=== PATIENT | female | born 1940 | race Caucasian/White ===

== ENCOUNTER → 2020-12-22 | Outpatient (CLI) | payer MEDICARE ==
--- NOTE | 2020-12-22 13:15 | RAD ---
Exam Date: 12/22/2020 1:07 PM XR CHEST 2V Indication: Reason: COUGH. WEAKNESS. / Spl. Instructions: / History: FINDINGS/ IMPRESSION: There are patchy opacities in the lung bases bilaterally which may represent atelectasis and/or infil trates. The cardiac silhouette is not enlarged with mild prominence of the pulmonary vasculature. There is no appreciable pleural effusion or pneumothorax. Degenerative changes are seen in the spine. Electronically signed by: Fausto Kulkarni MD (12/22/2020 1:13 PM) [facility]
== END ==
LOC: DXRAD 12:53
PROVIDERS: ATTEND Nurse Practitioner Family
DX: R05 Cough (principal); M47.814 Spondylosis without myelopathy or radiculopathy, thoracic region
CPT/HCPCS: 71046

== ENCOUNTER 2021-05-02 10:54 | Observation (INO) | payer MEDICARE ==
[~2021-05-02] VITALS: Ht 172.7 cm; Wt 106.7 kg
[2021-05-02] MEDS ORDERED: ALLO300T PO (12:09)
[2021-05-02] MEDS ORDERED: IBUP400T18 PO (12:09)
[2021-05-02] MEDS ORDERED: CYAN500T17 PO (12:09)
[2021-05-02] MEDS ORDERED: VITA200T6 PO (12:09)
[2021-05-02] MEDS ORDERED: ACET325C6 PO (12:09)
[2021-05-02] MEDS ORDERED: OMEG1CAP50 PO (12:09)
[2021-05-02] MEDS ORDERED: CHOL400T36 PO (12:09)
[2021-05-02 12:10] VITALS: BP 135/65
[2021-05-02 13:37] LABS: BASO % 0 % (0-3); EOS % 0 % (0-3); HEMOGLOBIN 11.2 g/dL (12.0-15.5); LYMPH % 30 % (24-48); MEAN CORPUSCULAR HEMOGLOBIN 30 pg (25-35); MEAN CORPUSCULAR HGB CONC 33 g/dL (31-37); MEAN CORPUSCULAR VOLUME 91 fL (79-100); MONO % 15 % (0-9); NEUT # 3.5 x10^3uL (1.8-7.7); NEUT % 54 % (31-73); PLATELET COUNT 144 x10^3/uL (140-400); RED BLOOD COUNT 3.74 x10^6/uL (3.50-5.40); RED CELL DISTRIBUTION WIDTH 14.2 % (11.5-14.5); WHITE BLOOD COUNT 6.6 x10^3/uL (4.0-11.0)
[2021-05-02 13:51] LABS: ALBUMIN 2.6 g/dL (3.4-5.0); ALBUMIN/GLOBULIN RATIO 0.7 (1.0-1.7); CALCIUM 8.9 mg/dL (8.5-10.1); CREATININE 1.2 mg/dL (0.6-1.0); GFR 43.1; POTASSIUM 3.1 mmol/L (3.5-5.1); TOTAL BILIRUBIN 0.5 mg/dL (0.2-1.0); TOTAL PROTEIN 6.2 g/dL (6.4-8.2)
[2021-05-02 14:17] LABS: % BANDS 5 % (0-9); % LYMPHS 38 % (24-48); % MONOS 10 % (0-10); % MYELOS 1 % (0-0); % SEGS 46 % (35-66); PLT ESTIMATE ADEQUATE (ADEQUATE)
[2021-05-02 14:18] VITALS: BP 122/77
[2021-05-02] MEDS ORDERED: ELECTROLYTE (NON-ICU) PROTOCOL. MC PRN (14:45)
[2021-05-02] MEDS ORDERED: ENOXAPARIN 40 MG/0.4 ML SYRINGE. SQ SCH (14:45)
--- NOTE | 2021-05-02 18:23 | EKG ---
[address] [address] Test Date: 2021-05-02 Test Time: 18:09:13 Pat Name: NACHO ALEXANDRE Department: Room: 111 A Gender: F Dialysis Registered Nurse: : 1940 Requested By: LORRAINE TYLER Order Number: [id number] Reading MD: Measurements Intervals [place] Rate: 81 P: 39 NE: 150 QRS: 15 QRSD: 110 T: 24 QT: 380 QTc: 447 Interpretive Statements SINUS RHYTHM QRS(T) CONTOUR ABNORMALITY CONSIDER INFERIOR MYOCARDIAL DAMAGE POSSIBLY ABNORMAL ECG RI6.01 No previous ECG available for comparison
[2021-05-02] MEDS ORDERED: ACETAMINOPHEN 325 MG TABLET PO PRN (18:30)
[2021-05-02] MEDS ORDERED: IBUPROFEN 400 MG TABLET. PO PRN (18:30)
[2021-05-02] MEDS: LACTOBACILLUS RHAMNOSUS GG 1 CAPSULE. PO SCH (20:11)
[2021-05-02 20:32] VITALS: BP 135/81
[2021-05-03 00:54] VITALS: BP 122/73
[2021-05-03 01:38] LABS: BACTERIA,URINE 0 /HPF (0-FEW); BILIRUBIN,URINE NEG (NEG); CLARITY,URINE CLEAR; COLOR,URINE YELLOW; GLUCOSE,URINE NEG (NEG); NITRITE,URINE NEG (NEG); RBC,URINE 0 /HPF (0-2); SQUAMOUS EPITHELIAL CELL,UR FEW /LPF; UROBILINOGEN,URINE 0.2 mg/dL (0.2 mg/dL)
[2021-05-03 05:15] VITALS: BP 116/82
--- NOTE | 2021-05-03 08:32 | RAD ---
EXAM: Chest, 2 views. HISTORY: Shortness of breath. COMPARISON: 12/22/2020 FINDINGS: 2 views of the chest are obtained. There is stable diffuse increased interstitial opacity. There is no consolidation, pleural effusion or pneumothorax. There is stable enlargement of the left hilum. The heart is normal in size. IMPRESSION: 1. Stable diffuse increased interstitial opacity suggesting interstitial infiltrate or chronic inters titial changes. 2. Stable left hilar prominence due to enlarged central pulmonary vessels or lymphadenopathy. Electronically signed by: Jaky Torres MD (05/03/2021 8:30 AM) [id number]
[2021-05-03] MEDS: LACTOBACILLUS RHAMNOSUS GG 1 CAPSULE. PO SCH (08:44)
[2021-05-03] MEDS ORDERED: ALLOPURINOL 300 MG TABLET. PO SCH (09:00)
[2021-05-03 09:28] LABS: CALCIUM 9.5 mg/dL (8.5-10.1); CREATININE 1.1 mg/dL (0.6-1.0); GFR 47.7; POTASSIUM 3.2 mmol/L (3.5-5.1)
[2021-05-03] MEDS ORDERED: LEVO500T8 PO (09:54)
[2021-05-03] MEDS ORDERED: cefTRIAXone IM 1 GM VIAL IM ONE (11:15)
--- NOTE | 2021-05-03 20:56 | DS ---
DATE OF DISCHARGE: 05/03/2021 HOSPITAL COURSE: The patient is an 81-year-old admitted with possible pyelonephritis, been having nausea, vomiting, been following with increased weakness despite being treated as an outpatient for her what appeared to be a urinary tract infection and got up into her kidneys. The patient was running a temperature of 103 the night before being admitted to the hospital. The patient was placed on IV antibiotic therapy. X-rays did demonstrate the possibility of an interstitial infiltrate, possibility along with a course of urinary tract infection. The patient otherwise has made excellent progress during the rest of her hospitalization. The patient had no trouble breathing, no chest pain, shortness of breath per se. The patient did have slight elevation of her AST of 38, alkaline phosphatase 121. The patient's renal function decreased slightly to 47 on GFR. The patient's hemoglobin 11.2 and 34. In any case, the patient was admitted, placed on IV antibiotic therapy of Levaquin and Rocephin, made excellent progress. Final culture reports came back on her urine and showed E. coli. She was placed on Levaquin. I will make further evaluation on her as an outpatient where she was placed on oral antibiotics and she was able to keep things down and was discharged home. IMPRESSION: Therefore, pyelonephritis, possible interstitial pneumonia, hypokalemia, chronic kidney disease stage IIIA, severe protein malnutrition. The patient will be discharged home. Regular diet, decreased activity. Continue on the Levaquin. Follow up accordingly in 7 to 10 days or sooner as needed. Phone numbers were presented to the patient. ADITHYA DR: Ramone TID: [id number]
== END 2021-05-03 11:45 | disposition home or self-care (01) ==
LOC: INTOOBSV 10:54 → 1 SOUTH 10:54
PROVIDERS: ADMIT Family Medicine; ATTEND Family Medicine
DX: N12 Tubulo-interstitial nephritis, not specified as acute or chronic (principal); E87.6 Hypokalemia; N18.31 Chronic kidney disease, stage 3a; E43 Unspecified severe protein-calorie malnutrition; N39.0 Urinary tract infection, site not specified; Z79.899 Other long term (current) drug therapy
CPT/HCPCS: 36415; 71046; 80048; 80053; 81001; 83605; 85007; 85025; 85379; 87040; 93005; 96365; 96366; 96368; 96372; G0378; G0379; J0696; J1650; J1956

== ENCOUNTER 2021-05-14 17:42 | Emergency (ER) | payer MEDICARE ==
[~2021-05-14] VITALS: Ht 172.7 cm; Wt 106.7 kg
[~2021-05-14 17:42] MED LIST: ACET325C6 PO; ALLO300T PO; CHOL400T36 PO; CYAN500T17 PO; IBUP400T18 PO; LEVO500T8 PO; OMEG1CAP50 PO; VITA200T6 PO
--- NOTE | 2021-05-14 18:57 | RAD ---
Exam: Chest one view INDICATION: Chest pain, cardiac workup TECHNIQUE: Frontal view of the chest Comparisons: 05/03/2021 FINDINGS: Cardiomediastinal silhouette and pulmonary vessels are within normal limits. Lung and pleural spaces are clear. IMPRESSION: No acute cardiopulmonary process Electronically signed by: Caesar Willis MD (05/14/2021 6:54 PM) [facility]
--- NOTE | 2021-05-14 19:17 | PHYS DOC ---
Past History Additional Past Medical Histor: GOUT Past Surgical History: , Hysterectomy, Knee Replacement, Other Additional Past Surgical Histo: L RETINAL DETACHMENT, BLADDER LIFT Adult General Chief Complaint Chief Complaint: HYPOTENSION HPI HPI Patient is an 81-year-old female with a past medical history significant for recent hospitalization for pyelonephritis, discharge 6 days ago on Levaquin and finished her course who presents with a chief complaint of intermittent lightheadedness since then. States that since she is got home from the hospital she has times during the day where she stands up fast and feels lightheaded. Denies any headache, actual feelings of faintness or like she is going to pass out, headache, fevers, chest pain, shortness of breath, abdominal pain, nausea, vomiting, dysuria, hematuria, diarrhea or blood in the stool. Denies any confusion, slurred speech, numbness/weakness/tingling, trouble sitting, standing or walking. Review of Systems Review of Systems Review of systems otherwise unremarkable except noted in HPI Allergies Allergies Allergies Coded Allergies Type Severity Reaction Last Updated Verified No Known Drug Allergies 05/02/21 No Physical Exam Physical Exam Constitutional: Well developed, well nourished, no acute distress, non-toxic appearance. [] HENT: Normocephalic, atraumatic, Eyes: PERRLA, EOMI, conjunctiva normal, no discharge. [] Neck: Normal range of motion, no tenderness, supple, no stridor. [] Cardiovascular:Heart rate regular rhythm, no murmur [] Lungs & Thorax: Bilateral breath sounds clear to auscultation [] Abdomen: soft, no tenderness, no masses, no pulsatile masses. [] Skin: Warm, dry, no erythema, no rash. [] Back: no CVA tenderness. [] Extremities: No tenderness, ROM intact, no edema. [] Neurologic: Alert and oriented X 3, normal motor function, normal sensory function, able to sit, stand and walk without issue, cranial nerves intact, no focal deficits noted. [] Psychologic: Affect normal, judgement normal, mood normal. [] Current Patient Data Vital Signs Vital Signs Date Time Temp Pulse Resp B/P (MAP) Pulse Ox O2 Delivery O2 Flow Rate FiO2 05/14/21 18:37 97.8 87 18 152/50 Room Air EKG EKG Rate of 73, QRS of 98, QTc of 438, no STEMI [] Radiology/Procedures Radiology/Procedures []Exam: Chest one view INDICATION: Chest pain, cardiac workup TECHNIQUE: Frontal view of the chest Comparisons: 05/03/2021 FINDINGS: Cardiomediastinal silhouette and pulmonary vessels are within normal limits. Lung and pleural spaces are clear. IMPRESSION: No acute cardiopulmonary process Electronically signed by: Caesar Willis MD (05/14/2021 6:54 PM) [facility] Heart Score C/O Chest Pain: No Risk Factors: Risk Factors: DM, Current or recent (<one month) smoker, HTN, HLP, family history of CAD, obesity. Risk Scores: Risk Factors: DM, Current or recent (<one month) smoker, HTN, HLP, family history of CAD, obesity. Course & Med Decision Making Course & Med Decision Making Patient is an 81-year-old female who presents with episodes of lightheadedness over the last few days after getting out of the hospital Vital signs not concerning. Physical exam noted above. Placed on the monitor with IV access established. Given IV fluid resuscitation. EKG noted above with no STEMI. Troponin not concerning. Laboratory analysis not concerning. Urinalysis not concerning. Patient asymptomatic and ready to be discharged home. Discussed all findings with patient and family. Advised to follow-up in the morning with primary care physician to set up a follow-up visit. Gave return precautions to the ED. Family grateful, verbalized understanding and agreed with plan of discharge. [] Dragon Disclaimer Dragon Disclaimer This electronic medical record was generated, in whole or in part, using a voice recognition dictation system. Departure Departure: Impression: Primary Impression: Lightheadedness Disposition: 01 HOME / SELF CARE / HOMELESS Condition: GOOD Referrals: LORRAINE TYLER MD (PCP) Patient Instructions: Dizziness Additional Instructions: Thank you for coming into the emergency department tonight and allowing us to take care of you. Please read all the attached information very carefully go back over the things we discussed. As discussed, the things we looked at today were reassuring for any emergencies but that does not mean you do not have something going on as we discussed that needs further evaluation and treatment. Please call your primary care physician first thing in the morning to update on ED visit and set up a follow-up as soon as possible to discuss need for further evaluation and treatment especially site monitor as we discussed. Please come back to the emergency department immediately with new or concerning symptoms as we discussed. IDANIA MARTI MD May 14, 2021 19:17
[2021-05-14 19:21] LABS: BASO % 0 % (0-3); EOS # 0.1 x10^3/uL (0.0-0.7); EOS % 1 % (0-3); HEMOGLOBIN 12.5 g/dL (12.0-15.5); LYMPH # 4.4 x10^3/uL (1.0-4.8); LYMPH % 45 % (24-48); MEAN CORPUSCULAR HEMOGLOBIN 30 pg (25-35); MEAN CORPUSCULAR HGB CONC 33 g/dL (31-37); MEAN CORPUSCULAR VOLUME 91 fL (79-100); MONO # 0.8 x10^3/uL (0.0-1.1); MONO % 8 % (0-9); NEUT # 4.6 x10^3uL (1.8-7.7); NEUT % 47 % (31-73); PLATELET COUNT 178 x10^3/uL (140-400); RED BLOOD COUNT 4.17 x10^6/uL (3.50-5.40); RED CELL DISTRIBUTION WIDTH 15.3 % (11.5-14.5); WHITE BLOOD COUNT 9.9 x10^3/uL (4.0-11.0)
[2021-05-14 19:29] LABS: CALCIUM 8.7 mg/dL (8.5-10.1); CREATININE 1.1 mg/dL (0.6-1.0); GFR 47.7; POTASSIUM 4.2 mmol/L (3.5-5.1)
[2021-05-14] MEDS ORDERED: IV RINGERS SOLUTION,LACTATED 1,000 ML IV ONE (20:00)
[2021-05-14 20:32] LABS: BACTERIA,URINE 0 /HPF (0-FEW); BILIRUBIN,URINE NEG (NEG); CLARITY,URINE CLEAR; COLOR,URINE YELLOW; GLUCOSE,URINE NEG (NEG); NITRITE,URINE NEG (NEG); RBC,URINE 0 /HPF (0-2); SQUAMOUS EPITHELIAL CELL,UR MOD /LPF; UROBILINOGEN,URINE 0.2 mg/dL (0.2 mg/dL); WBC,URINE RARE /HPF (0-4)
--- NOTE | 2021-05-14 21:07 | EKG ---
[address] [address] Test Date: 2021-05-14 Test Time: 19:22:42 Pat Name: NACHO ALEXANDRE Department: Room: Gender: F Stay Cutter: : 1940 Requested By: IDANIA MARTI Order Number: [id number] Reading MD: Measurements Intervals [place] Rate: 73 P: 37 WI: 172 QRS: 37 QRSD: 98 T: 29 QT: 394 QTc: 438 Interpretive Statements SINUS RHYTHM OTHERWISE NORMAL ECG RI6.02 No previous ECG available for comparison
[2021-05-14 21:09] VITALS: BP 136/78
== END 2021-05-14 21:10 | disposition home or self-care (01) ==
LOC: ER 17:42
DX: R42 Dizziness and giddiness (principal)
CPT/HCPCS: 36415; 71045; 80048; 81001; 84484; 85025; 93005; 96360; 99285; J7120

== ENCOUNTER 2021-08-17 18:49 | Inpatient (IN) | payer MEDICARE ==
[~2021-08-17] VITALS: Ht 175.3 cm; Wt 113.8 kg
[~2021-08-17 18:49] MED LIST changes: -LEVO500T8 PO; +LEVO500T9 PO
--- NOTE | 2021-08-17 19:45 | PHYS DOC ---
Past History Additional Past Medical Histor: GOUT (LEANNA STEWART APRN) Past Surgical History: , Hysterectomy, Knee Replacement, Other Additional Past Surgical Histo: L RETINAL DETACHMENT, BLADDER LIFT (LEANNA STEWART APRN) Alcohol Use: None (LEANNA STEWART APRN) General Adult EDM: Chief Complaint: HYPERTENSION HPI: HPI: Patient is an 81-year-old female that presents today via [facility] with inability to walk on her own starting this morning. Patient had left total knee replacement on August 07, she has then since been living with her daughter doing rehab with physical therapist inside the home. Report from daughter and patient is that yesterday she had a great physical therapy session walking on her own without any use of a walker. And then starting this morning patient said she got up by herself today but did not feel the same as she did yesterday did have some difficulties getting around and by this afternoon patient was unable to bear weight or walk at all with her walker. Patient denies chest pain, shortness of air, fever, chills, nausea vomiting, or diarrhea. Patient does state her leg is swollen but she said it has been swo llen since her surgery. (LEANNA STEWART APRN) Review of Systems: Review of Systems: Constitutional: Denies fever or chills Eyes: Denies change in visual acuity HENT: Denies nasal congestion or sore throat Respiratory: Denies cough or shortness of breath Cardiovascular: Denies chest pain or edema GI: Denies abdominal pain, nausea, vomiting, bloody stools or diarrhea : Denies dysuria Musculoskeletal: Left leg pain and weakness status post total knee replacement Integument: Denies rash Neurologic: Denies headache, focal weakness or sensory changes Endocrine: Denies polyuria or polydipsia Lymphatic: Denies swollen glands Psychiatric: Denies depression or anxiety (LEANNA STEWART APRN) Current Medications: Current Meds: Allopurinol 300 mg Macrobid 1 tablet twice daily Omeprazole 20 mg daily Vitamin D Fish Calcium Baby aspirin Eliquis 5 mg 3 times daily Cardizem 20 mg daily Tylenol PM Celebrex 200 mg (LEANNA STEWART APRN) Allergies: Allergies: Allergies Coded Allergies Type Severity Reaction Last Updated Verified No Known Drug Allergies 05/02/21 No (LEANNA STEWART PROGRAM PROPOSALS COORDINATOR) Physical Exam: PE: Constitutional: Well developed, well nourished, no acute distress, non-toxic appearance. [] HENT: Normocephalic, atraumatic, bilateral external ears normal, oropharynx moist, no oral exudates, nose normal. [] Eyes: PERRLA, EOMI, conjunctiva normal, no discharge. [] Neck: Normal range of motion, no tenderness, supple, no stridor. [] Cardiovascular:Heart rate regular rhythm, no murmur [] Lungs & Thorax: Bilateral breath sounds clear to auscultation [] Abdomen: Bowel sounds normal, soft, no tenderness, no masses, no pulsatile masses. [] Skin: Warm, dry, no erythema, no rash. [] Back: No tenderness, no CVA tenderness. [] Extremities: Left leg is swollen, surgical incision dressing is in place midline knee, knee is warm to touch, pedal pulses 2+, sensory intact distal to the incision, right leg no swelling noted midline knee incision noted pedal pulses 2+ Neurologic: Alert and oriented X 3, normal motor function, normal sensory function, no focal deficits noted. [] Psychologic: Affect normal, judgement normal, mood normal. [] (LEANNA STEWART PROGRAM PROPOSALS COORDINATOR) Current Patient Data: Labs: Laboratory Tests Test 08/17/21 19:00 08/17/21 20:13 Urine Collection Type Clean catch Urine Color Yellow Urine Clarity Hazy Urine pH 6.0 Urine Specific [place] 1.015 Urine Protein Neg Urine Glucose (UA) Neg mg/dL Urine Ketones (Stick) Neg mg/dL Urine Blood Small Urine Nitrite Neg Urine Bilirubin Neg Urine Urobilinogen Dipstick 0.2 mg/dL Urine Leukocyte Esterase Large Urine RBC 6-10 /HPF Urine WBC Tntc /HPF Urine Squamous Epithelial Cells Mod /LPF Urine Bacteria Many /HPF White Blood Count 7.1 x10^3/uL Red Blood Count 3.43 x10^6/uL Hemoglobin 10.3 g/dL Hematocrit 31.8 % Mean Corpuscular Volume 93 fL Mean Corpuscular Hemoglobin 30 pg Mean Corpuscular Hemoglobin Concent 33 g/dL Red Cell Distribution Width 15.5 % Platelet Count 256 x10^3/uL Neutrophils (%) (Auto) 37 % Lymphocytes (%) (Auto) 45 % Monocytes (%) (Auto) 12 % Eosinophils (%) (Auto) 5 % Basophils (%) (Auto) 1 % Neutrophils # (Auto) 2.6 x10^3uL Lymphocytes # (Auto) 3.2 x10^3/uL Monocytes # (Auto) 0.9 x10^3/uL Eosinophils # (Auto) 0.4 x10^3/uL Basophils # (Auto) 0.0 x10^3/uL Sodium Level 140 mmol/L Potassium Level 3.7 mmol/L Chloride Level 102 mmol/L Carbon Dioxide Level 28 mmol/L Anion Gap 10 Blood Urea Nitrogen 14 mg/dL Creatinine 0.9 mg/dL Estimated GFR (Cockcroft-Gault) 60.1 BUN/Creatinine Ratio 16 Glucose Level 88 mg/dL Calcium Level 9.0 mg/dL Total Bilirubin 0.4 mg/dL Aspartate Amino Transf (AST/SGOT) 17 U/L Alanine Aminotransferase (ALT/SGPT) 16 U/L Alkaline Phosphatase 81 U/L Total Protein 6.6 g/dL Albumin 2.9 g/dL Albumin/Globulin Ratio 0.8 Current Medications Medications (Trade) Dose Ordered Sig/Yash Route PRN Reason Start Time Stop Time Status Last Admin Dose Admin Acetaminophen (Tylenol) 1,000 mg 1X ONCE PO 08/17/21 20:45 08/17/21 20:46 DC Ceftriaxone Sodium 1 gm/ Sodium Chloride 50 ml @ 100 mls/hr 1X ONCE IV 08/17/21 22:00 08/17/21 22:29 Sodium Chloride 50 ml @ As Directed STK-MED ONCE .ROUTE 08/17/21 21:33 08/17/21 21:33 DC Ceftriaxone Sodium (Rocephin) 1 gm STK-MED ONCE .ROUTE 08/17/21 21:33 08/17/21 21:33 DC Oxycodone/ Acetaminophen (Percocet 5/325) 1 tab PRN Q4HRS PRN PO MODERATE PAIN 4-6 08/17/21 21:45 Vital Signs: Vital Signs Date Time Temp Pulse Resp B/P (MAP) Pulse Ox O2 Delivery O2 Flow Rate FiO2 08/17/21 21:09 66 17 155/67 (96) 95 Room Air 08/17/21 20:03 79 157/76 (103) 92 Room Air 08/17/21 18:59 75 18 182/75 (110) 95 Room Air (LEANNA STEWART APRN) EKG: EKG: [] (LEANNA STEWART APRN) EKG: My interpretation EKG shows a sinus rhythm at 74 bpm. No acute morphology. Time of EKG is 2148 hrs. (ROBERTO BERRIOS MD) Radiology/Procedures: Radiology/Procedures: REASON: weakness PROCEDURE: CHEST AP ONLY AP chest. HISTORY: Weakness AP view was taken of the chest. Heart is within normal limits in size. There is no effusion. There are interstitial changes in the lungs which are new compared to the study from April from interstitial infiltrates or edema. IMPRESSION: 1. Development of interstitial infiltrates or edema. Electronically signed by: Ulises Garcia MD (08/17/2021 8:05 PM) [facility][] (LEANNA STEWART APRN) Heart Score: C/O Chest Pain: N/A Risk Factors: Risk Factors: DM, Current or recent (<one month) smoker, HTN, HLP, family history of CAD, obesity. Risk Scores: Score 0 - 3: 2.5% MACE over next 6 weeks - Discharge Home Score 4 - 6: 20.3% MACE over next 6 weeks - Admit for Clinical Observation Score 7 - 10: 72.7% MACE over next 6 weeks - Early Invasive Strategies (LEANNA STEWART APRN) Course & Med Decision Making: Course & Med Decision Making Pertinent Labs and Imaging studies reviewed. (See chart for details) 2129 at bedside talking with patient and daughter informed her of the radiological results and lab results, will admit patient for urinary tract infection, pneumonia, and weakness. Patient and daughter agreeable with admission. (LEANNA STEWART PROGRAM PROPOSALS COORDINATOR) Dragon Disclaimer: Dragon Disclaimer: This electronic medical record was generated, in whole or in part, using a voice recognition dictation system. (LEANNA STEWART PROGRAM PROPOSALS COORDINATOR) Departure Departure: Impression: Primary Impression: UTI (urinary tract infection) Qualified Codes: N39.0 - Urinary tract infection, site not specified Additional Impressions: Pneumonia Qualified Codes: J18.9 - Pneumonia, unspecified organism Weakness Disposition: ADMITTED INPATIENT Admitting Physician: Lorraine Tyler (LEANNA STEWART APRN) Condition: GUARDED Referrals: LORRAINE TYLER MD (PCP) Attending Signature Attending Signature I have participated in the care of this patient and I have reviewed and agree with all pertinent clinical information above including history, exam, and recommendations. (ROBERTO BERRIOS MD) LEANNA STEWART APRN Aug 17, 2021 19:45 ROBERTO BERRIOS MD Aug 17, 2021 21:52
[2021-08-17 20:00] LABS: BILIRUBIN,URINE NEG (NEG); CLARITY,URINE HAZY; COLOR,URINE YELLOW; GLUCOSE,URINE NEG (NEG)
[2021-08-17 20:01] LABS: BACTERIA,URINE MANY /HPF (0-FEW); NITRITE,URINE NEG (NEG); SQUAMOUS EPITHELIAL CELL,UR MOD /LPF; UROBILINOGEN,URINE 0.2 mg/dL (0.2 mg/dL); WBC,URINE TNTC /HPF (0-4)
--- NOTE | 2021-08-17 20:08 | RAD ---
AP chest. HISTORY: Weakness AP view was taken of the chest. Heart is within normal limits in size. There is no effusion. There ar e interstitial changes in the lungs which are new compared to the study from April from interstitial infiltrates or edema. IMPRESSION: 1. Development of interstitial infiltrates or edema. Electronically signed by: Ulises Garcia MD (08/17/2021 8:05 PM) [facility]
[2021-08-17 20:38] LABS: BASO % 1 % (0-3); EOS # 0.4 x10^3/uL (0.0-0.7); EOS % 5 % (0-3); HEMATOCRIT 31.8 % (36.0-47.0); HEMOGLOBIN 10.3 g/dL (12.0-15.5); LYMPH # 3.2 x10^3/uL (1.0-4.8); LYMPH % 45 % (24-48); MEAN CORPUSCULAR HEMOGLOBIN 30 pg (25-35); MEAN CORPUSCULAR HGB CONC 33 g/dL (31-37); MEAN CORPUSCULAR VOLUME 93 fL (79-100); MONO # 0.9 x10^3/uL (0.0-1.1); MONO % 12 % (0-9); NEUT # 2.6 x10^3uL (1.8-7.7); NEUT % 37 % (31-73); PLATELET COUNT 256 x10^3/uL (140-400); RED BLOOD COUNT 3.43 x10^6/uL (3.50-5.40); RED CELL DISTRIBUTION WIDTH 15.5 % (11.5-14.5); WHITE BLOOD COUNT 7.1 x10^3/uL (4.0-11.0)
[2021-08-17 20:44] LABS: CREATININE 0.9 mg/dL (0.6-1.0); GFR 60.1; POTASSIUM 3.7 mmol/L (3.5-5.1)
[2021-08-17] MEDS ORDERED: ACETAMINOPHEN 500 MG TABLET PO ONE (20:45)
[2021-08-17 20:49] LABS: ALBUMIN 2.9 g/dL (3.4-5.0); ALBUMIN/GLOBULIN RATIO 0.8 (1.0-1.7); TOTAL BILIRUBIN 0.4 mg/dL (0.2-1.0); TOTAL PROTEIN 6.6 g/dL (6.4-8.2)
--- NOTE | 2021-08-17 21:14 | RAD ---
Left lower extremity venous ultrasound, : History: Unable to bear weight, knee replacement one week ago Duplex evaluation including grayscale, color flow and spectral Doppler analysis was performed. The femoral and popliteal veins show no filling defects to suggest DVT. The visualized calf veins are u nremarkable. There is edema in the soft tissues a left leg. IMPRESSION: 1. There is no sonographic evidence of deep vein thrombosis in the left lower extremity Electronically signed by: Ulises Garcia MD (08/17/2021 9:11 PM) [facility]
[2021-08-17] MEDS ORDERED: cefTRIAXone SODIUM 1 GM VIAL ONE (21:33)
[2021-08-17] MEDS ORDERED: IV NORMAL SALINE 50ML 50 ML ONE (21:33)
--- NOTE | 2021-08-17 22:20 | EKG ---
[address] [address] Test Date: 2021-08-17 Test Time: 21:46:38 Pat Name: NACHO ALEXANDRE Department: Room: 111 A Gender: F Janitorial Manager: : 1940 Requested By: LEANNA STEWART Order Number: [id number] Reading MD: Helio Rivera Measurements Intervals [place] Rate: 74 P: 25 AR: 168 QRS: 31 QRSD: 104 T: 33 QT: 394 QTc: 438 Interpretive Statements SINUS RHYTHM NORMAL ECG RI6.02 Compared to ECG 05/14/2021 19:22:42 No significant changes Electronically Signed On 08-18-2021 7:12:18 MANAGER EMERGENCY by Helio Rivera
[2021-08-17 23:16] VITALS: BP 177/78
[2021-08-17] MEDS: oxyCODONE/APAP 5/325 1 TAB TABLET PO PRN (23:49)
[2021-08-18] MEDS ORDERED: OMEP20CA16 PO (01:05)
[2021-08-18] MEDS ORDERED: DILT60TA3 PO (01:05)
[2021-08-18] MEDS ORDERED: OXYC5TAB88 PO (01:05)
[2021-08-18] MEDS ORDERED: NITR100C62 PO (01:05)
[2021-08-18] MEDS ORDERED: APIX5TAB3 PO (01:05)
[2021-08-18] MEDS ORDERED: DULO20CA50 PO (01:05)
[2021-08-18 06:13] VITALS: BP 166/76
[2021-08-18] MEDS: oxyCODONE/APAP 5/325 1 TAB TABLET PO PRN (10:32)
[2021-08-18] MEDS ORDERED: IBUPROFEN 400 MG TABLET. PO PRN (10:45)
[2021-08-18 11:23] VITALS: BP 159/74
[2021-08-18] MEDS ORDERED: FUROSEMIDE 20 MG/2 ML VIAL IVP ONE (13:15)
[2021-08-18] MEDS: APIXABAN 5 MG TABLET. PO SCH ×2 (14:40→20:03)
[2021-08-18 15:59] VITALS: BP 145/75
[2021-08-18 19:10] VITALS: BP 164/68
[2021-08-18] MEDS: oxyCODONE IR 5 MG TABLET PO SCH (20:03)
[2021-08-18 23:58] VITALS: BP 169/78
--- NOTE | 2021-08-19 05:01 | HP ---
DATE OF SERVICE: 08/18/2021 ADMIT DATE: 08/17/2021 HISTORY OF PRESENT ILLNESS: She is an 81-year-old female came in through the Emergency Room, recently had a total left knee replacement 08/07/2021 down at [place], apparently was unable to walk because of severe pain in that left knee. The patient noted that she was having problems getting around and when she was noted to have problems with this, she was brought in through the Emergency Room and was found to have a significant urinary tract infection that was unresponsive to oral medications. She had too numerous to count white blood cells and patient was having elevated blood pressures greater than 180. As a result of this, the patient was admitted for IV antibiotic therapy since she had failed oral antibiotics and the possibility of an infection in that joint was of high consideration. The patient was COVID negative. PAST MEDICAL HISTORY: Includes that of recent history of atrial fibrillation with rapid ventricular response, heart murmur, anticoagulant therapy with Eliquis, hypertension, abdominal surgery, hysterectomy, arthritis, osteoarthritis, gout, joint replacement right knee, left total knee replacement just here in the last 11 days on 08/07/2021, depression, recurrent infections, frequent UTIs. FAMILY HISTORY: Positive for heart valve problems, prostate cancer, breast cancer in first-degree relative mother, Parkinson's disease, COPD, Alzheimer's disease. ALLERGIES: No known drug allergies. SOCIAL HISTORY: The patient denies smoking, alcohol or drug use. FULL CODE. REVIEW OF SYSTEMS: The patient has fever and chills. Denies headaches, visual change, blurred vision, double vision. Denies any melena, hematochezia or hematemesis and neurologically stable there. PHYSICAL EXAMINATION: GENERAL: This is a very pleasant white female. VITAL SIGNS: Blood pressure 182/75, respiratory rate 20, pulse 73, temperature 99.1, room air 92. HEENT: The patient's head was atraumatic, normocephalic. Eyes: PERRLA without jaundice. The mouth and throat were normal. NECK: Supple without JVD, carotid bruits, nor thyroidmegaly. LUNGS: Diminished throughout, poor movement of air, but clear. CARDIOVASCULAR: At this time, regular sinus rhythm, S1, S2, without murmur, rub, thrill, or extra heart sounds. ABDOMEN: Soft, nontender, no rebounding, no guarding. Positive bowel sounds, no hepatosplenomegaly was noted. EXTREMITIES: No clubbing, cyanosis, nor edema except for that left knee, which is markedly swollen, increased warmth secondary to previous surgery as noted for her surgery as indicated above. The patient in turn pulses were noted distally. NEUROLOGIC: She was stable otherwise. LABORATORY DATA: Demonstrated white count of 7, hemoglobin and hematocrit of 10 and 30. Chemistries; Sodium 140, potassium 3.7, BUN and creatinine 14 and 0.9. BNP of 640. Albumin low at 2.9. Negative SARS. Urine too numerous to count white blood cells and the like. IMPRESSION: Pyelonephritis, recent left knee replacement, recent history of atrial fibrillation with rapid ventricular response, hypertensive urgency. PLAN: The patient placed on IV antibiotic therapy on situation of anticoagulant therapy and make further evaluation on her as indicated for those results. ALICE/SONAM/ANA DR: ALICE/katie TID: [id number]
[2021-08-19] MEDS: oxyCODONE IR 5 MG TABLET PO SCH ×2 (05:37→17:25)
[2021-08-19 05:52] VITALS: BP 175/81
[2021-08-19] MEDS: DULoxetine HCL 20 MG CAPSULE.DR PO SCH (07:45)
[2021-08-19] MEDS: OMEGA-3 FATTY ACIDS/FISH OIL 1,000 MG CAPSULE. PO SCH (07:45)
[2021-08-19] MEDS: VITAMIN E 200 UNIT CAPSULE. PO SCH (07:46)
[2021-08-19] MEDS: APIXABAN 5 MG TABLET. PO SCH ×2 (07:46→20:19)
[2021-08-19] MEDS: ALLOPURINOL 300 MG TABLET. PO SCH (07:46)
[2021-08-19] MEDS: CYANOCOBALAMIN (VITAMIN B-12) 250 MCG TABLET. PO SCH (07:46)
[2021-08-19] MEDS: CHOLECALCIFEROL (VITAMIN D3) 1,000 UNIT TABLET PO SCH (07:46)
[2021-08-19] MEDS ORDERED: NITROFURANTOIN MONOHYD/M-CRYST 100 MG CAPSULE. PO SCH (09:00)
[2021-08-19 10:46] VITALS: BP 184/80
--- NOTE | 2021-08-19 11:27 | PN ---
DATE: 08/19/2021 SUBJECTIVE: An 81-year-old female in with pneumonia, urinary tract infection, pyelonephritis, left knee post-surgery within the last 10 days, maybe slightly infected there as well for that matter, generalized weakness. The patient seems to be doing a little better this morning. She continues to receive IV antibiotic therapy for her pneumonia and urinary tract infection and her atrial fibrillation, seems to be under better control; although, her blood pressure is elevated to a significant level. We are adjusting her medications to adjust for that as well. The patient otherwise is alert and oriented. OBJECTIVE: VITAL SIGNS: Blood pressure 175/80, respiratory rate 20, pulse 85, afebrile, room air of 94%. GENERAL: The patient is alert and oriented. HEENT: Head: Atraumatic, normocephalic. LUNGS: Diminished throughout. Crackles in the bases. Lungs are baseline as indicated. CARDIOVASCULAR: Regular sinus rhythm presently this morning. ABDOMEN: Soft, nontender. EXTREMITIES: No clubbing, cyanosis or edema. Left knee still swollen and tender. We will get PT, OT to work on that. NEUROLOGIC: Alert and oriented. IMPRESSION: Pneumonia, urinary tract infection, pyelonephritis, possible superficial cellulitis to the left knee post surgical knee replacement. PLAN: Continue with rehabilitation and IV antibiotic therapy and continue possible skilled care for the left knee replacement. ALCIE/TAB DR: ALICE/katie TID: [id number]
[2021-08-19] MEDS: ACETAMINOPHEN 325 MG TABLET PO PRN (12:36)
[2021-08-19 14:40] VITALS: BP 175/79
[2021-08-19 19:00] VITALS: BP 150/79
[2021-08-19] MEDS: LACTOBACILLUS RHAMNOSUS GG 1 CAPSULE. PO SCH (20:19)
[2021-08-19 23:16] VITALS: BP 161/76
[2021-08-20] MEDS: ACETAMINOPHEN 325 MG TABLET PO PRN (02:04)
[2021-08-20 05:00] VITALS: BP 160/74
[2021-08-20] MEDS: oxyCODONE IR 5 MG TABLET PO SCH (05:57)
[2021-08-20 06:23] LABS: BASO % 1 % (0-3); EOS # 0.2 x10^3/uL (0.0-0.7); EOS % 3 % (0-3); HEMATOCRIT 26.2 % (36.0-47.0); HEMOGLOBIN 8.6 g/dL (12.0-15.5); LYMPH # 2.3 x10^3/uL (1.0-4.8); LYMPH % 29 % (24-48); MEAN CORPUSCULAR HEMOGLOBIN 30 pg (25-35); MEAN CORPUSCULAR HGB CONC 33 g/dL (31-37); MEAN CORPUSCULAR VOLUME 91 fL (79-100); MONO # 1.1 x10^3/uL (0.0-1.1); MONO % 13 % (0-9); NEUT # 4.5 x10^3uL (1.8-7.7); NEUT % 55 % (31-73); PLATELET COUNT 218 x10^3/uL (140-400); RED BLOOD COUNT 2.86 x10^6/uL (3.50-5.40); RED CELL DISTRIBUTION WIDTH 15.3 % (11.5-14.5); WHITE BLOOD COUNT 8.2 x10^3/uL (4.0-11.0)
[2021-08-20] MEDS: OMEGA-3 FATTY ACIDS/FISH OIL 1,000 MG CAPSULE. PO SCH (08:20)
[2021-08-20] MEDS: LACTOBACILLUS RHAMNOSUS GG 1 CAPSULE. PO SCH (08:21)
[2021-08-20] MEDS: CHOLECALCIFEROL (VITAMIN D3) 1,000 UNIT TABLET PO SCH (08:21)
[2021-08-20] MEDS: DULoxetine HCL 20 MG CAPSULE.DR PO SCH (08:21)
[2021-08-20] MEDS: ALLOPURINOL 300 MG TABLET. PO SCH (08:21)
[2021-08-20 08:22] VITALS: BP 160/74
[2021-08-20] MEDS: APIXABAN 5 MG TABLET. PO SCH (08:22)
[2021-08-20] MEDS: CYANOCOBALAMIN (VITAMIN B-12) 250 MCG TABLET. PO SCH (08:23)
[2021-08-20] MEDS: VITAMIN E 200 UNIT CAPSULE. PO SCH (08:23)
[2021-08-20] MEDS ORDERED: HYDR25TA10 PO (09:22)
[2021-08-20] MEDS ORDERED: LEVO250T8 PO ×2 (09:22→09:54)
--- NOTE | 2021-08-20 09:27 | DISCH ---
HOME HEALTH DISCHARGE/MEDS DISCHARGE INFORMATION: Discharge Date: Aug 20, 2021 Final Diagnosis: Problems Medical Problems: (1) Pneumonia Status: Acute (2) UTI (urinary tract infection) Status: Acute (3) Weakness Status: Acute Condition on Discharge: Stable CODE STATUS: Code Status: Full HOME HEALTH: Face to Face: I certify this patient is under my care and that I, or a nurse practitioner or physician's health care legal assistant working with me, had a face to face encounter that meets the physician face to face encounter requirements with this patient on August 20, 2021. Medical Condition(s): HTN, Pneumonia, S/P Joint Replacement Alf For: Assess Cardiopulm Status, Assess/Skilled Observatio, Medication Management, Pain Management Physical Therapy For: Evalulation/Treatment Homebound Status Met By: Unsteady balance w/ amb, POST DISCHARGE ORDERS: Activity Instructions for Disc: Activity as tolerated Weight Bearing Status after Di: No restrictions DIET AFTER DISCHARGE: Regular CERTIFICATION STATEMENT: Certification Statement: Based on the above finding, I certify that this patient is confined to the home and needs intermittent long term care, physical therapy and/or speech therapy, or continues to need occupational therapy.~ This patient is under my care, and I have initiated the establishment of the plan of care.~ This patient will be followed by myself or a community physician who will periodically review the plan of care. DISCHARGE MEDICATIONS: Home Meds Reported Medications Omeprazole (OMEPRAZOLE) 20 Mg Capsule.dr, PO DAILY for GERD, #30 CAP 5 Refills 08/18/21 Apixaban (ELIQUIS) 5 Mg Tablet, 5 MG PO BID for DVT, TAB 08/18/21 Duloxetine Hcl (CYMBALTA) 20 Mg Capsule.dr, 1 CAP PO DAILY for Depression, #30 CAP 2 Refills 08/18/21 Oxycodone HCl (Roxicodone) 5 Mg Tablet, 1 TAB PO PRN Q4-6HRS PRN for pain MDD 12 Tablet(s) for 5 Days, #60 TAB 0 Refills 08/18/21 Nitrofurantoin Monohyd/M-Cryst (MACROBID 100 MG CAPSULE) 100 Mg Capsule, 1 CAP PO DAILY for UTI for 7 Days, #7 CAP 0 Refills 08/18/21 Diltiazem Hcl (CARDIZEM TABLET) 60 Mg Tablet, 120 MG PO DAILY for HTN/Rate control, #30 TAB 0 Refills 08/18/21 [place]-3 Fatty Acids/Fish Oil (FISH OIL 1,000 MG SOFTGEL) 1 Each Capsule, 1 EACH PO DAILY for SUPPLEMENT, CAP 05/02/21 Vitamin E Mixed (VITAMIN E) 200 Unit Tablet, 200 UNIT PO DAILY for SUPPLEMENT, TAB 05/02/21 Cyanocobalamin (Vitamin B-12) (B-12) 500 Mcg Tablet, 1 TAB PO DAILY for SUPPLEMENT for 30 Days, #30 TAB 0 Refills 05/02/21 Ibuprofen (IBUPROFEN) 400 Mg Tablet, 400 MG PO PRN Q6HRS PRN for PAIN, TAB 05/02/21 Acetaminophen (Tylenol) 325 Mg Capsule, 325 MG PO PRN Q6HRS PRN for PAIN, CAP 05/02/21 Allopurinol (ALLOPURINOL) 300 Mg Tablet, 300 MG PO DAILY for GOUT, TAB 05/02/21 Cholecalciferol (Vitamin D3) (VITAMIN D) 400 Unit Tablet, 400 UNIT PO DAILY for SUPPLEMENT, TAB 05/02/21 LORRAINE TYLER MD Aug 20, 2021 09:27
--- NOTE | 2021-08-20 11:32 | DS ---
DATE OF DISCHARGE: 08/20/2021 HOSPITAL COURSE: This is an 81-year-old female who came in through the Emergency Room with severe urinary tract infection, pyelonephritis and pneumonia. The patient also had some mild cellulitis to a recent left knee replacement 10 days prior to admission. The patient does have some problems with coughing. Lungs were diminished, but with IV antibiotic therapy being used to treat her pneumonia as well as her urinary tract infection, the patient did have a positive blood culture. Vital signs remained basically stable, however; if anything, her blood pressure went up into the 180s and hypertensive urgency. Apparently, her chief building inspector had changed some of her blood pressure medication and that effected that. In any case, the patient made good progress overall with the IV Levaquin, which was sensitive to the E. coli that was isolated out of her urine and made good progress overall with that. The patient remained afebrile throughout, pulse remained in her baseline 70s-80s, oxygenation 95-96 room air. The patient's lungs remain basically clear. Abdomen soft. The patient showed no other signs of abnormality. The patient will continue oral antibiotics as an outpatient for at least another week and make further assessment on her as indicated. IMPRESSION: Pyelonephritis, bacteremia, gram-negative Escherichia coli, pneumonia, anemia, probably postsurgical, 8.6 and 26; [id number] protein malnutrition, urinary tract infection, SARS negative, cellulitis to the leg, pneumonia, hypertensive urgency, history of atrial fibrillation with rapid ventricular response, although stayed in sinus rhythm while she was here at this time. She will stay on a heart healthy diet, decreased activity. Follow up with her chief building inspector, . ____. ALICE/DANIAL/DIANE DR: ALICE/katie TID: [id number]
== END 2021-08-20 10:05 | disposition home health service (06) | DRG 602 ==
LOC: ER 18:49 → 1 SOUTH 21:40
PROVIDERS: ADMIT Family Medicine; ATTEND Family Medicine
DX: L03.116 Cellulitis of left lower limb (principal); J15.6 Pneumonia due to other Gram-negative bacteria; N12 Tubulo-interstitial nephritis, not specified as acute or chronic; E44.0 Moderate protein-calorie malnutrition; I10 Essential (primary) hypertension; Z96.653 Presence of artificial knee joint, bilateral; Z20.822 Contact with and (suspected) exposure to COVID-19; M19.90 Unspecified osteoarthritis, unspecified site; M10.9 Gout, unspecified; F32.A Depression, unspecified; I48.91 Unspecified atrial fibrillation; I16.0 Hypertensive urgency; B96.20 Unspecified Escherichia coli [E. coli] as the cause of diseases classified elsewhere; D64.9 Anemia, unspecified; Z90.710 Acquired absence of both cervix and uterus; Z87.440 Personal history of urinary (tract) infections; Z82.5 Family history of asthma and other chronic lower respiratory diseases; Z82.0 Family history of epilepsy and other diseases of the nervous system; Z80.3 Family history of malignant neoplasm of breast; Z68.37 Body mass index [BMI] 37.0-37.9, adult
CPT/HCPCS: 36415; 71045; 80053; 81001; 83880; 84484; 85025; 87040; 87077; 87086; 87186; 87205; 87426; 93005; 93971; 96365; J0696; J1956; U0003; 97110; 97535; 99285-25

== ENCOUNTER → 2021-10-25 | Outpatient (CLI) | payer MEDICARE ==
[~2021-10-25] MED LIST changes: +APIX5TAB3 PO; +DILT60TA3 PO; +DULO20CA50 PO; +HYDR25TA10 PO; +LEVO250T8 PO; +NITR100C62 PO; +OMEP20CA16 PO; +OXYC5TAB88 PO
--- NOTE | 2021-10-25 10:07 | RAD ---
EXAM: RENAL ULTRASOUND CLINICAL HISTORY: Cystitis. COMPARISON: None available. TECHNIQUE: Ultrasound examination of the bilateral kidneys and urinary bladder was performed. FINDINGS: The right kidney measures 9.7 cm [id number] and the left kidney measures 9.8 cm pole-to-p ole. There is a 1.4 cm simple appearing exophytic cyst within the lateral right kidney. There are mul tiple left renal cysts, the largest of which is an exophytic cyst along the lower pole measuring 5.4 cm in maximum dimension. No solid renal lesion is seen. There is no hydronephrosis. The aorta and inf erior vena cava are predominantly obscured due to bowel gas. The prevoid bladder volume is 42 cc. IMPRESSION: 1. Multiple simple renal cysts, the largest of which measures 5.4 cm on the left. Follow-up is not ro utinely performed for simple cysts. 2. No acute sonographic finding. Electronically signed by: Jaky Torres MD (10/25/2021 10:04 AM) [id number]
== END ==
LOC: US 08:51
PROVIDERS: ATTEND Urology
DX: N28.1 Cyst of kidney, acquired (principal); N30.20 Other chronic cystitis without hematuria
CPT/HCPCS: 76770